=== PATIENT | male | born 1970 | race American Indian/Alaskan Native ===

== ENCOUNTER 2018-09-02 13:58 | Inpatient (IN) | payer MEDICAID ==
--- NOTE | 2018-09-02 14:16 | Emergency Department Report ---
Blank Doc - Documentation Documentation: 48 y/o male with PMH of CHF, HTN, Renal disease and DM. Has previous toe ampu ation to right toe november 2017 and noticed wound to foot 1-2 hours ago and presents to ED for evaluation. Dr. Liao ([facility] is PCP.
[2018-09-02] MEDS ORDERED: VANCOMYCIN/NS 1 GM/250 ML 1 GM/250 ML BAG IV ONE (15:27)
--- NOTE | 2018-09-02 15:55 | Emergency Department Report ---
HPI - General Chief Complaint: Extremity Injury, Lower Time Seen by Provider: 09/02/18 14:13 - HPI HPI: 48-year-old -Prydeinig male presents to the emergency department with the complaint of pain, swelling and infection to the right foot. The patient has a past medical history of CHF, diabetes, chronic kidney disease and hypertension. He has a history of toe amputation from that right foot in November of last year that was done by his surgeon in [place], where he resides. The patient says that he had a follow-up appointment a few weeks ago that included an x-ray and some blood work and he was told that everything looked fine. The patient says that he started noticing some increased pain and then some drainage from the bottom of the right foot a few hours prior to presentation. He denies any fever, shortness of breath, chest pain, nausea, vomiting. He has not taken anything for her symptoms prior to arrival. ED Past Medical Hx - Past Medical History Hx Hypertension: Yes Hx Congestive Heart Failure: Yes Hx Diabetes: Yes - Surgical History Additional Surgical History: right third toe amputation 12/2017 - Social History Smoking Status: Never Smoker Substance Use Type: None ED Review of Systems ROS: Stated complaint: SORE RT FOOT/DIABETIC Other details as noted in HPI Comment: All other systems reviewed and negative Constitutional: denies: chills, fever Eyes: denies: eye pain, vision change ENT: denies: ear pain, throat pain Respiratory: denies: cough, shortness of breath Cardiovascular: edema (right foot). denies: chest pain Gastrointestinal: denies: abdominal pain, vomiting Genitourinary: denies: dysuria, discharge Musculoskeletal: joint swelling, arthralgia, myalgia Skin: lesions. denies: pruritus Neurological: denies: headache, weakness Physical Exam - Physical Exam Vital Signs: Vital Signs 09/02/18 14:15 Temperature 98.3 F Pulse Rate 82 Respiratory 16 Rate Blood Pressure 183/118 O2 Sat by Pulse 100 Oximetry Physical Exam: GENERAL: The patient is well-developed well-nourished. HENT: Normocephalic. Atraumatic. Patient has moist mucous membranes. EYES: Extraocular motions are intact. NECK: Supple. Trachea is midline. CHEST/LUNGS: Clear to auscultation. There is no respiratory distress noted. HEART/CARDIOVASCULAR: Regular. There is no tachycardia. There is no murmur. ABDOMEN: Abdomen is soft, nontender. Patient has normal bowel sounds. There is no abdominal distention. SKIN: Skin is warm and dry. 2+ pitting edema to bilateral lower extremities. There is nonpitting swelling of the bilateral feet with right greater than left. The patient has what appears to be an abscess to the middle of the proximal plantar right foot. There is some purulent drainage seen. NEURO: The patient is awake, alert, and oriented. The patient is cooperative. The patient has no focal neurologic deficits. The patient has normal speech. MUSCULOSKELETAL: Tenderness to palpation to the circumferential right foot. There is no limitation range of motion. ED Course Vital Signs 09/02/18 14:15 Temperature 98.3 F Pulse Rate 82 Respiratory 16 Rate Blood Pressure 183/118 O2 Sat by Pulse 100 Oximetry ED Medical Decision Making - Lab Data Result diagrams: 09/02/18 15:35 09/02/18 15:35 - Medical Decision Making Patient presents with some acute pain and swelling to his right foot and appears to have a diabetic foot infection/abscess to the proximal plantar portion. He has a mild leukocytosis of 12,000. He has some chronic kidney disease but he has a GFR currently of about 30. Patient has significant bilateral lower extremity swelling with pitting edema except for the feet. Patient presents with elevated blood pressure and was given a dose of hydralazine. He was covered with treated for his abscess and cellulitis with vancomycin. Vital signs stable including being afebrile. The patient does not have any follow-up as he lives in [place] and is unsure of his return timeline. He has a history of recent toe" secondary to osteomyelitis. An x-ray was done today that does not show any signs of any acute osteomyelitis. However with his comorbidities of diabetes, hypertension, CHF, and this new right foot infection/abscess, it will be my recommendation for the patient to be admitted to the hospital for further evaluation, IV antibiotics. This case has been presented to the admitting hospitalist, Dr. Lopez, to evaluate the patient for admission versus further disposition. - Differential Diagnosis abscess, cellulitis, osteomyelitis, sepsis Critical Care Time: No Critical care attestation.: If time is entered above; I have spent that time in minutes in the direct care of this critically ill patient, excluding procedure time. ED Disposition Clinical Impression: Diabetic foot infection, Foot abscess, right, Renal insufficiency Hypertension Qualifiers: Hypertension type: essential hypertension Qualified Code(s): I10 - Essential (primary) hypertension Cellulitis Qualifiers: Site of cellulitis: extremity Site of cellulitis of extremity: lower extremity Laterality: right Qualified Code(s): L03.115 - Cellulitis of right lower limb Disposition: OP ADMIT IP TO THIS HOSP Is pt being admited?: Yes Condition: Stable Instructions: Diabetes Mellitus Type 2 in Adults (ED), Hypertension (ED) Referrals: AR MACHUCA MD [Primary Care Provider] - 3-5 Days Time of Disposition: 17:03
[2018-09-02] MEDS ORDERED: VANCOMYCIN 1,750 MG in NACL 0.9% 500 ML 500 ML IV ONE (16:00)
[2018-09-02 16:13] LABS: Calcium 8.1 mg/dL (8.4-10.2)
--- NOTE | 2018-09-02 16:27 | XRay Report ---
PROCEDURE: XR FOOT 3+V RT TECHNIQUE: Right foot 3 views HISTORY: foot wound for unknown time COMPARISONS: FINDINGS: There is been amputation of the third toe at the level of the metatarsal head. There is diffuse soft tissue swelling of the forefoot. No soft tissue gas appreciated. No acute bony destructive changes ar e observed. IMPRESSION: Soft tissue swelling Status post amputation of the third toe at the level of the metatarsal head. This document is electronically signed by Adan Strong MD., Sep 02 2018 04:25:02 PM ET
[2018-09-02] MEDS ORDERED: APRESOLINE IV ONE (16:32)
[2018-09-02 16:47] LABS: Basophils % (Auto) 0.3 % (0.0-1.8); Eosinophils # (Auto) 0.5 K/mm3 (0.0-0.4); Eosinophils % (Auto) 4.3 % (0.0-4.3); Hematocrit 33.1 % (35.5-45.6); Hemoglobin 11.2 gm/dl (11.8-15.2); Lymphocytes # (Auto) 1.7 K/mm3 (1.2-5.4); Lymphocytes % (Auto) 13.9 % (13.4-35.0); Mean Corpuscular HGB Conc 34 % (32-34); Mean Corpuscular Volume 86 fl (84-94); Monocytes # (Auto) 0.8 K/mm3 (0.0-0.8); Monocytes % (Auto) 6.5 % (0.0-7.3); Platelet Count 236 K/mm3 (140-440); Red Blood Count 3.86 M/mm3 (3.65-5.03); Red Cell Distribution Width 13.8 % (13.2-15.2)
[2018-09-02] MEDS ORDERED: TYLENOL PO PRN (17:04)
[2018-09-02] MEDS ORDERED: ZOFRAN IV PRN (17:04)
[2018-09-02] MEDS ORDERED: SODIUM CHLORIDE FLUSH SYRINGE 10 ML IV PRN (17:04)
--- NOTE | 2018-09-02 17:06 | History and Physical Report ---
History of Present Illness Chief complaint: My right foot hurts History of present illness: 48 YO Male with HTN, DM, Systolic CHF presents to ED for evaluation. Pt states that he has experienced pain, redness, swelling, and foul smelling drainage coming from his right foot over the past 3 days with worsening symptoms over the past 1 day. Pt states that pain is 5-7/10, worsened with weight bearing and relieved with non weight bearing. Pt is currently unable to bear weight on his right foot. Pt also acknowledges lower extremity edema, but denies medication noncompliance, fever, chills, CP, Palpitations, NVD, Trauma, Syncope, BRBPR, Productive cough, skin rash, or recent ill contacts. Pt transported to [facility] via private vehicle. Pt seen and evaluated in ED and found to have Diabetic Foot complicated by RLE Cellulitis, as well as Hypertensive Urgency, Acute Renal Failure, SIRS, and Acute on Chronic Systolic CHF. Cardiology consulted in ED. Pt admitted to [facility]. CT scan of RLE pending at time of admission. No prior admission for review. All listed medication reconciled at time of admission. Past History Past Medical History: diabetes, heart failure, hypertension Past Surgical History: Other (Right 3rd toe amputation) Social history: single. denies: smoking, alcohol abuse, prescription drug abuse Family history: diabetes, hypertension Medications and Allergies Allergies Allergy/AdvReac Type Severity Reaction Status Date / Time anidulafungin Allergy Unknown Verified 09/02/18 14:14 [From Eraxis(Water Diluent)] Penicillins Allergy Unknown Verified 09/02/18 14:14 Home Medications Medication Instructions Recorded Confirmed Last Taken Type Furosemide [Lasix TAB] 40 mg PO QDAY 09/02/18 09/02/18 Unknown History Furosemide [Lasix TAB] 80 mg PO QAM 09/02/18 09/02/18 Unknown History ISOSORBIDE MONOnitrate [Imdur ER] 60 mg PO DAILY 09/02/18 09/02/18 Unknown History Linagliptin [Tradjenta] 5 mg PO QDAY 09/02/18 09/02/18 Unknown History Lisinopril [Zestril TAB] 40 mg PO QDAY 09/02/18 09/02/18 Unknown History Metoprolol [Lopressor] 100 mg PO BID 09/02/18 09/02/18 Unknown History Spironolactone [Aldactone] 100 mg PO QDAY 09/02/18 09/02/18 Unknown History hydrALAZINE [Apresoline] 50 mg PO TID 09/02/18 09/02/18 Unknown History Active Meds: Active Medications Acetaminophen (Tylenol) 650 mg PO Q4H PRN PRN Reason: Pain MILD(1-3)/Fever >100.5/PANIAGUA Vancomycin HCl 1,750 mg/ (Sodium Chloride) 535 mls @ 356.667 mls/hr IV ONCE ONE Stop: 09/02/18 17:29 Last Admin: 09/02/18 16:29 Dose: 356.667 mls/hr Documented by: Ondansetron HCl (Zofran) 4 mg IV Q8H PRN PRN Reason: Nausea And Vomiting Sodium Chloride (Sodium Chloride Flush Syringe 10 Ml) 10 ml IV BID OLESYA Sodium Chloride (Sodium Chloride Flush Syringe 10 Ml) 10 ml IV PRN PRN PRN Reason: LINE FLUSH Review of Systems Constitutional: no weight loss, no weight gain, no fever, no chills Ears, nose, mouth and throat: no ear discharge, no tinnitis, no decreased hearing, no nose pain Cardiovascular: no chest pain, no rapid/irregular heart beat, no edema Respiratory: no cough with sputum, no excessive sputum, no hemoptysis, no shortness of breath Gastrointestinal: no abdominal pain, no nausea, no vomiting, no diarrhea, no constipation Genitourinary Male: no dysuria, no hematuria, no flank pain, no discharge Rectal: no pain, no incontinence, no bleeding Musculoskeletal: no neck stiffness, no neck pain, no shooting arm pain, no arm numbness/tingling Integumentary: no rash, no redness, no wounds, no boils Neurological: no head injury, no parathesias, no tingling Psychiatric: no anxiety, no change in sleep habits, no hypersomnia, no change in libido, no disorientation Endocrine: no cold intolerance, no heat intolerance, no excessive thirst, no polydipsia, no polyuria Hematologic/Lymphatic: no easy bruising, no easy bleeding, no lymphadenopathy, no lymphedema Allergic/Immunologic: no urticaria, no allergic rhinitis, no persistent infections Exam - Constitutional Vitals: Temp Pulse Resp BP Pulse Ox 98.3 F 82 16 169/101 100 09/02/18 14:15 09/02/18 14:15 09/02/18 14:15 09/02/18 16:54 09/02/18 14:15 General appearance: Present: mild distress - EENT Eyes: Present: PERRL ENT: hearing intact, clear oral mucosa - Neck Neck: Present: supple, normal ROM - Respiratory Respiratory effort: normal Respiratory: bilateral: CTA - Cardiovascular Heart Sounds: Present: S1 & S2. Absent: rub, click - Extremities Extremities: pulses symmetrical Extremity abnormal: edema Peripheral Pulses: within normal limits - Abdominal General gastrointestinal: Present: soft, non-tender, non-distended, normal bowel sounds Male genitourinary: Present: normal - Integumentary Integumentary: Present: clear, warm, dry - Musculoskeletal Musculoskeletal: gait normal, strength equal bilaterally - Psychiatric Psychiatric: appropriate mood/affect, intact judgment & insight - Neurologic Neurologic: CNII-XII intact, moves all extremities Results - Labs CBC & Chem 7: 09/02/18 15:35 09/03/18 04:24 Labs: Abnormal lab results 09/02/18 09/02/18 09/02/18 Range/Units 15:35 15:35 15:55 WBC 12.2 H (4.5-11.0) K/mm3 Hgb 11.2 L (11.8-15.2) gm/dl Hct 33.1 L (35.5-45.6) % Eos # 0.5 H (0.0-0.4) K/mm3 Seg Neutrophils % 75.0 H (40.0-70.0) % Seg Neutrophils # 9.1 H (1.8-7.7) K/mm3 Potassium 3.4 L (3.6-5.0) mmol/L BUN 32 H (9-20) mg/dL Creatinine 2.9 H (0.8-1.5) mg/dL Glucose 146 H (75-100) mg/dL Calcium 8.1 L (8.4-10.2) mg/dL NT-Pro-B Natriuret Pep 58212 H (0-450) pg/mL Assessment and Plan - Patient Problems (1) CHF (congestive heart failure) Current Visit: Yes Status: Acute Qualifiers: Heart failure type: systolic Heart failure chronicity: acute on chronic Qualified Code(s): I50.23 - Acute on chronic systolic (congestive) heart failure Plan to address problem: Admit to IMCU: Cardiology consulted in ED, Echo, strict I/o, daily weight, monitor uop q shift to ensure negative fluid balance, afterload reduction, supplemental oxygen, BNP, chest x ray. (2) SIRS (systemic inflammatory response syndrome) Current Visit: Yes Status: Acute Plan to address problem: IV antibiotic therapy, urinalysis, chest x ray CBC, CMP, (3) Hypertensive urgency Current Visit: Yes Status: Acute Plan to address problem: Monitor BP q shift, resume prehospital antihypertensive therapy, IV hydralazine prn for systolic above 155. (4) Cellulitis Current Visit: Yes Status: Acute Qualifiers: Site of cellulitis: extremity Site of cellulitis of extremity: lower extremity Laterality: right Qualified Code(s): L03.115 - Cellulitis of right lower limb Plan to address problem: IV antibiotic therapy, CBC, CMP, supportive care. (5) Diabetic foot infection Current Visit: Yes Status: Acute Plan to address problem: IV antibiotic therapy, wound care consult, X ray of RLE conducted and did not show periosteal elevation, CT RLE in am, serial physical exam. (6) ARF (acute renal failure) with tubular necrosis Current Visit: Yes Status: Acute Plan to address problem: IVF resuscitation therapy, monitor uop q shift, repeat bmp in am to monitor serum creatnine, (7) DVT prophylaxis Current Visit: Yes Status: Acute Plan to address problem: SCD to BLE while in bed, prophylactic heparin
[2018-09-02] MEDS ORDERED: APRESOLINE IV PRN (17:07)
[2018-09-02] MEDS ORDERED: VANCOMYCIN PHARMACY TO DOSE IV SCH (18:00)
--- NOTE | 2018-09-02 18:54 | Cat Scan Report ---
PROCEDURE: CT LOWER EXTREMITY RT WO CON TECHNIQUE: CT of the right ankle obtained without contrast. HISTORY: pain/cellulitis COMPARISONS: Radiographs of L5//19. FINDINGS: Diffuse circumferential soft tissue swelling noted throughout the soft tissues of the right lower ext remity, correlate for cellulitis. No clear drainable fluid collections visualized. No acute fracture or dislocation. No secondary CT findings for osteomyelitis. IMPRESSION: Diffuse circumferential soft tissue swelling noted throughout the soft tissues of the right lower ext remity, correlate for cellulitis. No clear drainable fluid collections visualized. If symptoms persist or worsen, MRI could be considered for more sensitive evaluation.. This document is electronically signed by Uma Ernst MD., Sep 02 2018 06:52:27 PM ET
[2018-09-02] MEDS ORDERED: APRESOLINE ONE (21:27)
[2018-09-02] MEDS: SODIUM CHLORIDE FLUSH SYRINGE 10 ML IV SCH (23:05)
[2018-09-03 05:09] LABS: Calcium 7.5 mg/dL (8.4-10.2)
[2018-09-03] MEDS ORDERED: LASIX IV SCH ×2 (06:00→09:52)
[2018-09-03] MEDS ORDERED: LASIX ONE ×3 (06:05→18:34)
[2018-09-03] MEDS ORDERED: LOPRESSOR PO SCH (08:00)
[2018-09-03] MEDS ORDERED: K-DUR PO ONE ×2 (08:36→09:11)
[2018-09-03] MEDS ORDERED: APRESOLINE ONE (08:55)
[2018-09-03] MEDS ORDERED: LOPRESSOR ONE (08:55)
[2018-09-03] MEDS ORDERED: LEVOPHED DRIP 4 MG/NS 250 ML 4 MG/250 ML BAG IV SCH (09:00)
[2018-09-03] MEDS: APRESOLINE PO SCH ×2 (09:10→17:44)
--- NOTE | 2018-09-03 09:51 | Consultation ---
History of Present Illness Consult date: 09/03/18 Consult reason: congestive heart failure History of present illness: 48 year old male presenting with right foot ulcer and cellulitis. He has a h istory of cardiomyopathy followed in [facility]. 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 He has been compliant with meds. He follows with PCP in [facility]. No cardiology follow-up. He reports a 26 lbs weight gain recently but denies chest pain or shortness of breath. He is known DM with chronic renal failure and DM induced neuropathy. Past History Past Medical History: diabetes, heart failure, hypertension Past Surgical History: Other (Right 3rd toe amputation) Social history: single. denies: smoking, alcohol abuse, prescription drug abuse Family history: diabetes, hypertension Medications and Allergies Allergies Allergy/AdvReac Type Severity Reaction Status Date / Time anidulafungin Allergy Unknown Verified 09/02/18 14:14 [From Eraxis(Water Diluent)] Penicillins Allergy Unknown Verified 09/02/18 14:14 Home Medications Medication Instructions Recorded Confirmed Last Taken Type Furosemide [Lasix TAB] 40 mg PO QDAY 09/02/18 09/02/18 Unknown History Furosemide [Lasix TAB] 80 mg PO QAM 09/02/18 09/02/18 Unknown History ISOSORBIDE MONOnitrate [Imdur ER] 60 mg PO DAILY 09/02/18 09/02/18 Unknown History Linagliptin [Tradjenta] 5 mg PO QDAY 09/02/18 09/02/18 Unknown History Lisinopril [Zestril TAB] 40 mg PO QDAY 09/02/18 09/02/18 Unknown History Metoprolol [Lopressor] 100 mg PO BID 09/02/18 09/02/18 Unknown History Spironolactone [Aldactone] 100 mg PO QDAY 09/02/18 09/02/18 Unknown History hydrALAZINE [Apresoline] 50 mg PO TID 09/02/18 09/02/18 Unknown History Active Meds: Active Medications Acetaminophen (Tylenol) 650 mg PO Q4H PRN PRN Reason: Pain MILD(1-3)/Fever >100.5/PANIAGUA Furosemide (Lasix) 40 mg IV 0600,1800 OLESYA Last Admin: 09/03/18 06:04 Dose: 40 mg Documented by: Heparin Sodium (Porcine) (Heparin) 5,000 unit SUB-Q Q12HR [facility] Hydralazine HCl (Apresoline) 20 mg IV Q6H PRN PRN Reason: Hypertension SBP > 155 Last Admin: 09/02/18 21:30 Dose: 20 mg Documented by: Hydralazine HCl (Apresoline) 50 mg PO TID [facility] Last Admin: 09/03/18 09:10 Dose: 50 mg Documented by: Vancomycin HCl 1,250 mg/ (Sodium Chloride) 275 mls @ 183.333 mls/hr IV Q24H [facility] Norepinephrine (Levophed Drip 4 Mg/Ns 250 Ml) 4 mg in 250 mls @ 7.5 mls/hr IV TITR OLESYA; Protocol Isosorbide Mononitrate (Imdur) 60 mg PO DAILY [facility] Lisinopril (Zestril) 40 mg PO QDAY [facility] Metoprolol Tartrate (Lopressor) 100 mg PO BID@0800,1700 [facility] Last Admin: 09/03/18 09:10 Dose: 100 mg Documented by: Ondansetron HCl (Zofran) 4 mg IV Q8H PRN PRN Reason: Nausea And Vomiting Sodium Chloride (Sodium Chloride Flush Syringe 10 Ml) 10 ml IV BID [facility] Last Admin: 09/02/18 23:05 Dose: 10 ml Documented by: Sodium Chloride (Sodium Chloride Flush Syringe 10 Ml) 10 ml IV PRN PRN PRN Reason: LINE FLUSH Spironolactone (Aldactone) 100 mg PO QDAY [facility] Review of Systems All systems: negative Physical Examination Vital Signs Temp Pulse Resp BP Pulse Ox 98.3 F 82 16 183/118 100 09/02/18 14:15 09/02/18 14:15 09/02/18 14:15 09/02/18 14:15 09/02/18 14:15 General appearance: no acute distress HEENT: Positive: PERRL Neck: Positive: neck supple, JVD/HJR Cardiac: Positive: Reg Rate and Rhythm, S4 Lungs: Positive: Rales Abdomen: Positive: Soft Extremities: Present: +2 Edema Results 09/02/18 15:35 09/03/18 04:24 CBC 09/02/18 Range/Units 15:35 WBC 12.2 H (4.5-11.0) K/mm3 RBC 3.86 (3.65-5.03) M/mm3 Hgb 11.2 L (11.8-15.2) gm/dl Hct 33.1 L (35.5-45.6) % Plt Count 236 (140-440) K/mm3 Lymph # 1.7 (1.2-5.4) K/mm3 [place] # 0.8 (0.0-0.8) K/mm3 Eos # 0.5 H (0.0-0.4) K/mm3 Baso # 0.0 (0.0-0.1) K/mm3 Comprehensive Metabolic Panel 09/02/18 09/03/18 Range/Units 15:35 04:24 Sodium 140 138 (137-145) mmol/L Potassium 3.4 L 3.0 L (3.6-5.0) mmol/L Chloride 102.4 103.0 (98-107) mmol/L Carbon Dioxide 24 23 (22-30) mmol/L BUN 32 H 32 H (9-20) mg/dL Creatinine 2.9 H 3.2 H (0.8-1.5) mg/dL Glucose 146 H 136 H (75-100) mg/dL Calcium 8.1 L 7.5 L (8.4-10.2) mg/dL EKG interpretations - Telemetry EKG Rhythm: Sinus Rhythm Assessment and Plan Acute on chronic combined systolic and diastolic heart failure Idiopathy cardiomyopathy Echo this admission showing LVEF 40-45%, restrictive filling Acute on chronic renal failure Systemic Hypertension RLE cellulitis Type II DM with secondary neuropathy Recommendations: Continue IV diuresis and afterload reduction Increase IV lasix to 60 mg bid Change metoprolol tartrate to succinate Nephrology consult Will continue to follow
[2018-09-03] MEDS ORDERED: HEPARIN SUB-Q SCH (10:00)
[2018-09-03] MEDS ORDERED: ALDACTONE PO SCH (10:00)
[2018-09-03] MEDS ORDERED: ZESTRIL PO SCH (10:00)
[2018-09-03] MEDS ORDERED: TOPROL XL PO SCH (10:00)
[2018-09-03] MEDS ORDERED: IMDUR PO SCH (10:00)
[2018-09-03] MEDS: SODIUM CHLORIDE FLUSH SYRINGE 10 ML IV SCH (10:00)
--- NOTE | 2018-09-03 10:29 | Progress Note ---
Assessment and Plan (1) CHF (congestive heart failure) Current Visit: Yes Status: Acute Qualifiers: Heart failure type: systolic Heart failure chronicity: acute on chronic Qualified Code(s): I50.23 - Acute on chronic systolic (congestive) heart failure Plan to address problem: Admit to IMCU: Cardiology consulted in ED, Echo, strict I/o, daily weight, monitor uop q shift to ensure negative fluid balance, afterload reduction, supplemental oxygen, BNP, chest x ray. (2) SIRS (systemic inflammatory response syndrome) Current Visit: Yes Status: Acute Plan to address problem: IV antibiotic therapy, urinalysis, chest x ray CBC, CMP, (3) Hypertensive urgency Current Visit: Yes Status: Acute Plan to address problem: Monitor BP q shift, resume prehospital antihypertensive therapy, IV hydralazine prn for systolic above 155. (4) Cellulitis Current Visit: Yes Status: Acute Qualifiers: Site of cellulitis: extremity Site of cellulitis of extremity: lower extremity Laterality: right Qualified Code(s): L03.115 - Cellulitis of right lower limb Plan to address problem: IV antibiotic therapy, CBC, CMP, supportive care. (5) Diabetic foot infection Current Visit: Yes Status: Acute Plan to address problem: IV antibiotic therapy, wound care consult, X ray of RLE conducted and did not show periosteal elevation, CT RLE in am, serial physical exam. (6) ARF (acute renal failure) with tubular necrosis Current Visit: Yes Status: Acute Plan to address problem: IVF resuscitation therapy, monitor uop q shift, repeat bmp in am to monitor serum creatnine, (7) DVT prophylaxis Current Visit: Yes Status: Acute Plan to address problem: SCD to BLE while in bed, prophylactic heparin Subjective Date of service: 09/03/18 Objective - Constitutional Vitals: Vital Signs - 12hr 09/02/18 09/03/18 09/03/18 22:58 00:31 01:00 Temperature 98.8 F Pulse Rate 96 H 79 76 Respiratory 14 18 16 Rate Blood Pressure 140/73 146/82 Blood Pressure 154/82 [Left] O2 Sat by Pulse 98 100 98 Oximetry 09/03/18 09/03/18 09/03/18 02:00 02:31 02:45 Temperature Pulse Rate 80 73 73 Respiratory 17 19 16 Rate Blood Pressure 140/82 140/82 140/82 Blood Pressure [Left] O2 Sat by Pulse 98 98 99 Oximetry 09/03/18 09/03/18 09/03/18 03:01 04:00 04:15 Temperature Pulse Rate 75 70 73 Respiratory 20 16 17 Rate Blood Pressure 163/97 162/91 Blood Pressure [Left] O2 Sat by Pulse 95 95 Oximetry 09/03/18 09/03/18 09/03/18 04:31 04:45 05:00 Temperature Pulse Rate 78 73 71 Respiratory 13 14 14 Rate Blood Pressure 139/77 Blood Pressure [Left] O2 Sat by Pulse 99 99 96 Oximetry 09/03/18 09/03/18 09/03/18 05:31 06:00 07:00 Temperature Pulse Rate 74 75 69 Respiratory 16 13 14 Rate Blood Pressure 157/91 157/85 144/72 Blood Pressure [Left] O2 Sat by Pulse 98 96 96 Oximetry 09/03/18 09/03/18 09/03/18 08:00 09:01 09:10 Temperature Pulse Rate 72 72 77 Respiratory 14 22 Rate Blood Pressure 153/77 153/77 166/99 Blood Pressure [Left] O2 Sat by Pulse 94 100 Oximetry 09/03/18 10:00 Temperature Pulse Rate 67 Respiratory 17 Rate Blood Pressure 151/87 Blood Pressure [Left] O2 Sat by Pulse 98 Oximetry - Labs CBC & Chem 7: 09/02/18 15:35 09/03/18 04:24 Labs: Abnormal lab results 09/02/18 09/02/18 09/02/18 Range/Units 15:35 15:35 15:55 WBC 12.2 H (4.5-11.0) K/mm3 Hgb 11.2 L (11.8-15.2) gm/dl Hct 33.1 L (35.5-45.6) % Eos # 0.5 H (0.0-0.4) K/mm3 Seg Neutrophils % 75.0 H (40.0-70.0) % Seg Neutrophils # 9.1 H (1.8-7.7) K/mm3 Potassium 3.4 L (3.6-5.0) mmol/L BUN 32 H (9-20) mg/dL Creatinine 2.9 H (0.8-1.5) mg/dL Glucose 146 H (75-100) mg/dL POC Glucose (70-105) Hemoglobin A1c (4-6) % Calcium 8.1 L (8.4-10.2) mg/dL NT-Pro-B Natriuret Pep 97729 H (0-450) pg/mL 09/02/18 09/02/18 09/03/18 Range/Units 16:23 17:09 04:24 WBC (4.5-11.0) K/mm3 Hgb (11.8-15.2) gm/dl Hct (35.5-45.6) % Eos # (0.0-0.4) K/mm3 Seg Neutrophils % (40.0-70.0) % Seg Neutrophils # (1.8-7.7) K/mm3 Potassium 3.0 L (3.6-5.0) mmol/L BUN 32 H (9-20) mg/dL Creatinine 3.2 H (0.8-1.5) mg/dL Glucose 136 H (75-100) mg/dL POC Glucose 112 H (70-105) Hemoglobin A1c 6.8 H (4-6) % Calcium 7.5 L (8.4-10.2) mg/dL NT-Pro-B Natriuret Pep (0-450) pg/mL 09/03/18 Range/Units 05:14 WBC (4.5-11.0) K/mm3 Hgb (11.8-15.2) gm/dl Hct (35.5-45.6) % Eos # (0.0-0.4) K/mm3 Seg Neutrophils % (40.0-70.0) % Seg Neutrophils # (1.8-7.7) K/mm3 Potassium (3.6-5.0) mmol/L BUN (9-20) mg/dL Creatinine (0.8-1.5) mg/dL Glucose (75-100) mg/dL POC Glucose 119 H (70-105) Hemoglobin A1c (4-6) % Calcium (8.4-10.2) mg/dL NT-Pro-B Natriuret Pep (0-450) pg/mL
[2018-09-03] MEDS ORDERED: VANCOMYCIN 1,250 MG in NACL 0.9% 250ML 250 ML IV SCH ×2 (12:40→16:00)
--- NOTE | 2018-09-03 12:43 | Discharge Summary ---
Providers - Providers Date of Admission: 09/02/18 17:04 Date of discharge: 09/03/18 Attending physician: GRISELDA GROVES 09/02/18 23:28 Consult to Cardiology [CONS] Routine Consulting Provider: JOSÉ LUIS WINTERS Reason For Exam: chf 09/03/18 06:02 Consult to Wound/ET Nurse [CONS] Routine Reason For Exam: wound eval 09/03/18 11:46 Consult to Wound/ET Nurse [CONS] Routine Reason For Exam: wound eval [facility] Hospital[facility] Condition: Stable Hospital course: 48 year old male with history of cardiomyopathy presented with right foot ulcer and cellulitis. 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 His right leg xry and CT showed no osteomylitis but soft tissue swelling consistent with right foot diabetic foot infection and cellulitis. Patient refused to stay in the hospital and wanted to f/u at [place] with his PCP/cardiology. He was placed on abx and recommended to continue wound care outpt. He was then discharged home in stable condition. Recommended repeat BMP within a week. Discharge diagnosis: (1) CHF (congestive heart failure) , chronic - compensated (2) SIRS (systemic inflammatory response syndrome), likely from cellulitis (3) Hypertensive urgency (4) Cellulitis, right lower limb (5) Diabetic foot infection (6) JOYCE on CKD (7) hypokalemia Disposition: TO HOME OR SELFCARE Time spent for discharge: 34 minutes Core Measure Documentation - Palliative Care Palliative Care/ Comfort Measures: Not Applicable - Core Measures Any of the following diagnoses?: history only Exam - Physical Exam Narrative exam: GENERAL: The patient is well-developed well-nourished. HENT: Normocephalic. Atraumatic. Patient has moist mucous membranes. EYES: Extraocular motions are intact. NECK: Supple. Trachea is midline. CHEST/LUNGS: Clear to auscultation. There is no respiratory distress noted. HEART/CARDIOVASCULAR: Regular. There is no tachycardia. There is no murmur. ABDOMEN: Abdomen is soft, nontender. Patient has normal bowel sounds. There is no abdominal distention. SKIN: Skin is warm and dry. 2+ pitting edema to bilateral lower extremities. There is nonpitting swelling of the bilateral feet with right greater than left. The patient has what appears to be an abscess to the middle of the proximal plantar right foot. There is some purulent drainage seen. NEURO: The patient is awake, alert, and oriented. The patient is cooperative. The patient has no focal neurologic deficits. The patient has normal speech. MUSCULOSKELETAL: Tenderness to palpation to the circumferential right foot. There is no limitation range of motion. - Constitutional Vitals: Temp Pulse Resp BP Pulse Ox 98.8 F 67 17 151/87 98 09/02/18 22:58 09/03/18 10:00 09/03/18 10:00 09/03/18 10:00 09/03/18 10:00 Plan Activity: advance as tolerated Weight Bearing Status: Weight Bear as Tolerated Diet: diabetic Special Instructions: record daily weights, record blood sugar diary Follow up with: AR MACHUCA MD [Primary Care Provider] - 3-5 Days Prescriptions: Clindamycin [Clindamycin CAP] 600 mg PO BID #14 capsule
[2018-09-03 17:45] VITALS: BP 154/93
== END 2018-09-03 19:07 | disposition home or self-care (01) | DRG 602 ==
LOC: ED 13:58 → IMCU 17:04 → UNDODISIN 09-03 19:07
PROVIDERS: ADMIT Internal Medicine; ATTEND Internal Medicine
DX: L03.115 Cellulitis of right lower limb (principal); I50.43 Acute on chronic combined systolic (congestive) and diastolic (congestive) heart failure; N17.0 Acute kidney failure with tubular necrosis; I13.0 Hypertensive heart and chronic kidney disease with heart failure and stage 1 through stage 4 chronic kidney disease, or unspecified chronic kidney disease; R65.10 Systemic inflammatory response syndrome (SIRS) of non-infectious origin without acute organ dysfunction; E11.628 Type 2 diabetes mellitus with other skin complications; E11.621 Type 2 diabetes mellitus with foot ulcer; L97.519 Non-pressure chronic ulcer of other part of right foot with unspecified severity; E11.40 Type 2 diabetes mellitus with diabetic neuropathy, unspecified; I16.0 Hypertensive urgency; N18.9 Chronic kidney disease, unspecified; E11.22 Type 2 diabetes mellitus with diabetic chronic kidney disease; Z89.421 Acquired absence of other right toe(s); Z83.3 Family history of diabetes mellitus; Z82.49 Family history of ischemic heart disease and other diseases of the circulatory system; Z88.8 Allergy status to other drugs, medicaments and biological substances; Z88.0 Allergy status to penicillin; Z79.899 Other long term (current) drug therapy; Z79.84 Long term (current) use of oral hypoglycemic drugs
CPT/HCPCS: 36415; 80048; 82140; 82805; 82962; 83036; 83880; 85025; 87040; 93306; 96365; 96366; 96368; 96375; 96376; G0378; J0360; J1940; J3370; J7040; J7050